=== PATIENT | female | born 1960 | race Caucasian/White ===

== ENCOUNTER 2024-05-07 21:28 | Inpatient (IN) | payer BC, SELFPAY ==
[2024-05-07 15:37] VITALS: BP 121/87
[2024-05-07] MEDS: TORADOL 15 MG IV (17:58)
[2024-05-07 18:07] LABS: % Basophils 0.3 % (0-2); % Eosinophils 0.4 % (0-6); % Immature Granulocytes 1.1 % (0-0.5); % Lymphocytes 8.2 % (20.5-51.1); % Monocytes 5.6 % (1.7-9.3); % Neutrophils 84.4 % (42.2-75.2); Absolute Basophils 0.1 10^3/uL (0-0.2); Absolute Eosinophils 0.1 10^3/uL (0-0.7); Absolute Immature Granulocytes 0.2 10^3/uL (0-0.05); Absolute Lymphocytes 1.2 10^3/uL (1.2-3.4); Absolute Monocytes 0.8 10^3/uL (0.1-0.6); Absolute Neutrophils 12.2 10^3/uL (1.4-6.5); Hematocrit 36.6 % (37.0-47.0); Hemoglobin 11.8 g/dL (12.0-16.0); Mean Corp Hgb Conc. 32.2 g/dL (33.0-37.0); Mean Corpuscular Hgb 30.8 pg (27.0-31.0); Mean Corpuscular Volume 95.6 fL (81.0-99.0); Mean Platelet Volume 10.1 fL (7.4-10.4); Nucleated Red Blood Cells % 0 %; Platelet Count 258 10^3/uL (130-400); Red Blood Cell Count 3.83 10^6/uL (4.20-5.40); Red Cell Dist. Width 14.2 % (11.5-14.5); White Blood Cell Count 14.4 10^3/uL (4.8-10.8)
[2024-05-07 18:26] LABS: ALT (SGPT) 24 U/L (0-35); AST (SGOT) 23 U/L (14-36); Albumin 3.1 g/dl (3.5-5.0); Alkaline Phosphatase 218 U/L (38-126); Blood Urea Nitrogen 38 mg/dl (7-17); Calcium 8.8 mg/dl (8.4-10.2); Carbon Dioxide 23 mmol/L (22-30); Chloride 108 mmol/L (98-107); Glucose 117 mg/dl (70-99); Potassium 3.7 mmol/L (3.5-5.1); Sodium 142 mmol/L (135-145); Total Bilirubin 1.1 mg/dl (0.2-1.3); Total Protein 6.6 g/dl (6.3-8.2); eGFR 38.67
[2024-05-07 18:45] LABS: Lactic Acid 0.9 mmol/L (0.7-2.0)
[2024-05-07 18:48] LABS: Erythrocyte Sed Rate 84 mm/hour (0-20)
--- NOTE | 2024-05-07 19:49 | ED.MUSCINJ ---
HPI-Injury
General
Chief Complaint: Musculo-Skeletal Complaint
Source: patient
Exam Limitations: none
Time Seen by Provider: 05/07/24 16:40
Nursing documentation reviewed up to this point in time: agreed with
History of Present Illness-Injury
Is this injury a work related problem?: No
Is pt an associate of [facility]/[employer]?: No
Initial Injury comments:
Patient to ED with complaint of severe right knee pain. States she developed fever, n/v/d on Thursday. Fever for 24 hours only. States symptoms improved over the next few days. she noted right knee pain which has gotten progressively worse.
States she is now unable to put weight on her leg due to pain. Brought to ED by friend for eval.
Past History
Past History
ED Past Medical History: GERD and Other (PE, diverticulitis w/ abscess/perf)
ED Past Surgical History: Bowel resection, Gynecological, Orthopedic and Other (partial colectomy/colostomy w/ reversal)
Social History
Tobacco: Non-smoker
Alcohol: Occasional
Review of Systems
Review of Systems
Allergies reviewed?: Yes
All Other Systems: ROS reviewed and negative except as documented in HPI and ROS
Constitutional: Reports fever (1 week ago.)
EENT: Reports no symptoms
Respiratory: Reports no symptoms
Cardiac: Reports no symptoms
ABD/GI: Reports other (N/V/D Thursday thru . )
: Reports no symptoms
Musculoskeletal: Reports joint pain (right knee pain, swelling)
Skin: Reports no symptoms
Neurological: Reports no symptoms
Psychiatric: Reports no symptoms
Musculoskeletal Injury Exam
Musculoskeletal Injury Exam
Right Knee:
Pain with Movement?: Moderate
Tender to palpation?: Moderate
Soft tissue swelling?: Moderate
External deformity and angulation?: None
Joint effusion?: Moderate
Contusion?: None
Hematoma-local bleeding into tissue?: None
Strain- Sprain- Tear (Connective tissue injury)?: None
Crepitus with movement?: No
Joint instability?: No
Malalignment/deformity?: No
Range of motion: Limited
Distal skin color and temperature: normal-warm & good color
Normal distal neurovascular exam?: Yes
Peripheral Pulses: posterior tibial (right): 3+ and dorsalis pedis (right): 3+
Phy Exam
General Physical Exam
General Presentation: moderate distress
General age: appears stated age
General Skin: warm and dry
General Habitus: normal
General Mental: alert
Musculoskeletal Exam
Musculoskeletal Exam: neuro vasc intact
Skin Exam
Skin Exam: normal color, warm/dry and no rash
Psychiatric Exam
Psychiatric Exam: normal mood/affect
Injury Course
Orders/Labs/Results
Orders:
Orders
05/07/24 Breakfast
Regular
At Your Request: Full Participation
05/07/24 16:13
CR Knee- Right 4 Or More View* Urgent
Reason For Exam: pain, edema
05/07/24 17:39
Ketorolac [Toradol] 15 mg IV NOW STA
05/07/24 17:58
Comprehensive Metabolic Panel Urgent
05/07/24 18:02
CRP [C-Reactive Protein] Urgent
Complete Blood Count/With Diff Urgent
Sed Rate [Erythrocyte Sed Rate] Urgent
05/07/24 18:25
Lactic Acid Urgent
05/07/24 19:35
Body Fluid Cell Count Urgent
What is the Body Fluid: joint
Date Specimen was Collected: 05/07/24
Time Specimen was Collected: 19:26
Comment: with DIFF
Body Fluid Crystals Urgent
What is the Body Fluid: joint
Date Specimen was Collected: 05/07/24
Time Specimen was Collected: 19:26
Lyme Progressive Urgent
Blood Culture Urgent
PAVAN Source: Blood/Venous
Specimen Description:
Fluid Culture with Gram Stain Urgent
PAVAN Source: Joint Fluid
Specimen Description:
Date Specimen was Collected: 05/07/24
Time Specimen was Collected: 19:26
05/07/24 20:34
Vancomycin [Vancocin] 2,000 mg 0.9% Sodium Chloride 500 ml [Nss] 500 ml IV NOW
05/07/24 21:02
ORTHOPEDIC CONSULT Routine
Consulting Provider: Humberto Vasquez
Was physician already notified: Yes
05/07/24 21:06
Admit/Transfer Patient As Directed
Co-Sign Provider:
Level of Care: Inpatient admission
Assign to:: Medical/Surgical
Physician / Group: christ
Diagnosis: right knee septic arthritis
Reason for Hospitalization: right knee septic arthritis
Expected length of stay greater than two midnights?: Yes
ELOS- Estimated Length of Stay in days: 3
I certify the patient meets the requirements for IP care: Yes
PRN Pain Medication Management As Directed
May give lesser potent ordered pain med per pt: Yes
preference::
Protocol:: Medication orders for pain may be administered in a
manner that supports deferring to patient preference
when the pt is:
- Requesting an ordered lesser potent pain medication.
Least to most potent pain medications are defined
as: acetaminophen < NSAID < tramadol < opioids
(morphine, oxycodone, hydromorphone).
- Requesting a lesser dose of the same medication IF
ORDERED.
- Requesting a less intrusive route of administration
if both routes are prescribed by the provider (PO <
IV).
05/07/24 21:07
Code Status As Directed
Resuscitation Status: Full Code
05/07/24 23:18
0.9% Sodium Chloride 1000 ml [Nss] 1,000 ml IV 80 mls/hr
Acetaminophen [Tylenol] 650 mg PO Q4HPRN PRN
Bisacodyl [Dulcolax] 10 mg RECTAL [id number] PRN
Docusate W/Senna [Senokot-S] 1 tablet PO BIDPRN PRN
HYDROmorphone [Dilaudid] 0.5 mg IV Q4HPRN PRN
Ketorolac [Toradol] 10 mg IV Q6HPRN PRN
Polyethylene Glycol Powder [Miralax] 17 grams PO DAILYPRN PRN
VANCOMYCIN Pharmacy to Dose [VANCOCIN Pharmacy to Dose] 1 each Pharmacy To Prepare [Call Pharmacy To Prepare] 0 ml IV PER PROTOCOL
05/07/24 23:18
Activity As Directed
Activity Level: As Tolerated
Vital Signs As Directed
Frequency: Per unit guidelines
DX Deep Vein Thrombosis Video Routine
05/08/24 05:58
Basic Metabolic Panel IN AM
Complete Blood Count/No Diff IN AM
05/08/24 08:00
Heparin 5,000 units SC Q12
05/09/24 05:35
Basic Metabolic Panel IN AM
Complete Blood Count/No Diff IN AM
05/10/24 06:00
Basic Metabolic Panel IN AM
Complete Blood Count/No Diff IN AM
Abnormal Lab Results
05/07/24 05/07/24
17:58 18:02
WBC 14.4 H 10^3/uL
(4.8-10.8)
RBC 3.83 L 10^6/uL
(4.20-5.40)
Hgb 11.8 L g/dL
(12.0-16.0)
Hct 36.6 L %
(37.0-47.0)
MCHC 32.2 L g/dL
(33.0-37.0)
Abs Immat Gran (auto) 0.2 H 10^3/uL
(0-0.05)
Absolute Neuts (auto) 12.2 H 10^3/uL
(1.4-6.5)
Absolute Monos (auto) 0.8 H 10^3/uL
(0.1-0.6)
Immature Gran % 1.1 H %
(0-0.5)
Neutrophils % 84.4 H %
(42.2-75.2)
Lymphocytes % 8.2 L %
(20.5-51.1)
ESR 84 H mm/hour
(0-20)
Chloride 108 H mmol/L
(98-107)
BUN 38 H mg/dl
(7-17)
Creatinine 1.5 H mg/dL
(0.6-1.0)
Glucose 117 H mg/dl
(70-99)
Alkaline Phosphatase 218 H U/L
(38-126)
C-Reactive Protein 206.30 H mg/L
(0.0-10.00)
Albumin 3.1 L g/dl
(3.5-5.0)
05/07/24 18:02
05/07/24 17:58
Procedures
Incision/Drainage/Joint Aspiration
Right Knee:
Anethesia: 1% Lidocaine with Epi
Preparation: cleaned with Betadine
Type of procedure: aspiration
How much fluid was obtained?: number in mls (30)
Fluid description: cloudy
Treatment: antibiotics started
*Critical Care Note
Total Time (30-74mins, 75-104mins- exclusive of procedures): Not Applicable
Update Note
Update Note:
Patient to ED with complaint of severe right knee pain. SYmptoms started approx 4 days ago. NO history of trauma. Reports fever, n/v/d approx 1 week ago, prior to start of right knee pain. ON exam knee is painful to touch. Unable to bend knee
due to pain. NO erythema at joint. Labs reviewed. WBC 14.5, lactic normal. ELevated Sed Rate and CRP. Blood cultures pending. Joint aspirated for 30cc of thick yellow fluid, sent to lab for fluid culture, gram stain, crystals. Given dose if IV
vancomycin in dept. Consult placed to Dr. Vasquez. Madalyn mendez is admitted to hospitalist service
ED Attending Note
-
Portions of this chart may have been created with voice recognition software.� Occasional wrong word or��sound alike� substitutions may have occurred due to the inherent limitations of voice recognition software.
Discharge Plan
Departure
Patient Disposition: Admit
Date of Disposition: 05/07/24
Time of Disposition: 19:56
Presentation/result/management discussed w/ accepting MD/DO: Hospitalist
Condition: Fair
Covid-19: Not Applicable
Discharge Problem:
Septic arthritis of knee
Interventions
Interventions:
*Risk Screen - Suicide Last Done: 05/07/24 15:39
*General Assessment Last Done: 05/07/24 22:31
*Neglect/Abuse Screening Last Done: 05/07/24 15:39
ED- Fall Risk Assessment Last Done: 05/07/24 22:31
*ED COVID-19 Vaccine History Last Done: 05/07/24 22:31
*Nursing Disposition Last Done: 05/07/24 22:31
ED-Musculoskeletal Assessment Last Done: 05/07/24 18:04
Discharge Date and Time
Discharge Date/Time: 05/07/24 23:07
[2024-05-07 20:35] LABS: Body Fluid Granulocytes 97 %; Body Fluid Lymphocytes 2 %; Body Fluid Macrophages 1 %
[2024-05-07 20:36] LABS: Body Fluid Second Tech CMC
[2024-05-07] MEDS: VANCOCIN 540 MG IV (20:48)
--- NOTE | 2024-05-07 20:49 | HPS.HSE ---
Family Physician
-
Family Physician: Kaur Cristobal
Chief Complaint
-
Right knee pain
History of Present Illness
63-year-old with no significant past medical history presented to us with right knee pain. She was having nausea vomiting diarrhea since last Thursday to Thursday. Nausea vomiting diarrhea resolved by Thursday. on Thursday she noticed right
knee pain and swelling . Pain and swelling progressively got worse . She was having trouble ambulating .2 days she was unable to bear any weight on right knee .patient denied any fever, chills, chest pain, short of breath patient denied dysuria
hematuria .
I&D at the bedside. Fluid sent for cultures. Initiated on vancomycin
Medical History
Past Medical History
Past Medical History: Reports Other
Additional Past Medical History:
GERD
PE
Diverticulitis
Past Surgical History: Reports Other
Additional Past Surgical History:
Bowel resection
Partial colectomy/colostomy with reversal
Social History
Tobacco: Former Smoker
Alcohol: Occasional
Drug: None
Family History
Family History: Not pertinent
Allergies / Home Medications
Allergies reflects when Allergies were last updated in [facility].
Home Medications with original date entered in [facility]
Allergy/Medication List:
Allergies
Allergy/AdvReac Type Severity Reaction Status Date / Time
cat dander Allergy Unknown Verified 03/21/22 14:14
Home Medications
acetaminophen 500 mg tablet 1,000 mg PO DAILY 03/21/22
Review of Systems
-
Constitutional: Reports No Symptoms
EENT: Reports No Symptoms
Respiratory: Reports No Symptoms
Cardiac: Reports No Symptoms
Abdomen/GI: Reports No Symptoms
: Reports No Symptoms
Musculoskeletal: Reports Other (Right knee pain)
Skin: Reports No Symptoms
Neurological: Reports No Symptoms
Endocrine: Reports No Symptoms
Hematologic/Lymphatic: Reports No Symptoms
Psych: Reports No Symptoms
Physical Exam
Vital Signs
Vital Signs
Temp Pulse Resp BP Pulse Ox
98.3 F 94 16 121/87 95
05/07/24 15:37 05/07/24 15:37 05/07/24 15:37 05/07/24 15:37 05/07/24 15:37
Physical Exam
General: Well Developed, Well Nourished and No Apparent Distress
HEENT: NormoCephalic, Moist mucous membranes and Atraumatic
Respiratory: Clear
Cardiac: S1/S2 and Regular Rhythm; No Murmur or Rub
GI: Soft, Non Tender, Non Distended and Normal Bowel Sounds; No Organomegaly
Rectal: Deferred by Provider
Musculoskeletal: No Clubbing, No Cyanosis and Other (Right knee is swollen)
Skin: No Rash
Neuro: Nonfocal/grossly intact
Laboratory Results
-
05/07/24 18:02
05/07/24 17:58
Laboratory Results
Lactic Acid 0.9 mmol/L (0.7-2.0) 05/07/24 18:25
Total Bilirubin 1.1 mg/dl (0.2-1.3) 05/07/24 17:58
AST 23 U/L (14-36) 05/07/24 17:58
ALT 24 U/L (0-35) 05/07/24 17:58
Alkaline Phosphatase 218 U/L (38-126) H 05/07/24 17:58
Data Reviewed
-
Diagnostic Radiology: Report Reviewed by me
Lab Data: Labs Reviewed by me
Impression/Plan
-
# Septic arthritis right knee
-WBCs 14.4, ESR 84
-CRP 206.30
-Knee x-ray with impression of Tricompartment osteoarthritis most as above the medial compartment and patellofemoral joint. Moderate effusion.
-Status post I&D at the bedside
-Blood cultures and fluid cultures sent from ER
-Patient received vancomycin in ER
-Continue vancomycin
-Tylenol, Toradol and Dilaudid prn for pain
# Acute kidney injury likely dehydration
Creatinine 1.5
-Normal saline x 1
-BMP in a.m.
# DVT prophylaxis
-Heparin subcu
# CODE STATUS
-Full code
--- NOTE | 2024-05-07 20:59 | W.PN.UPDATE ---
Update Note
Progress Note Update
Patient seen in conjunction with RODRÍGUEZ. I agree with the findings on history and physical as well as assessment and plan unless stated otherwise.
Briefly, this is a 63-year-old with past medical history of GERD, prior diverticulitis with prior PE presenting to the emergency department with ongoing episode of right knee pain. Patient reports history of chronic bilateral knee osteoarthritis
having had her knee injections in the past the last injection was over a year ago. She has no history of her knee surgery. Patient reported that about 1 week ago she developed chills and nausea and vomiting which started to improve after she went
back on taking ibuprofen and Tylenol for pain. However few days later, which was about 4 days ago she started having right knee pain. She now has developed pain where she could not put any weight on the right side. She was unable to tell me if
there was any erythema. She also denies any knowledge of differential or increased swelling. Patient denies any injuries. She denies any animal bites. She has not been on any antibiotics recently. No recent hospitalizations.
In the emergency department she was afebrile, blood pressure was stable at 121/87 and had a pulse of 94. She had leukocytosis to 14,000 with a stable hemoglobin of 11.8 and normal platelet. ESR was markedly elevated at 84. BUN and creatinine are
slightly elevated at 38 and 1.5. Electrolytes are all within normal limits. Right knee x-ray shows tricompartmental osteoarthritis. Status post right knee arthrocentesis. Fluid count shows pussy material with 97% neutrophils.
Assessment and plan
1. Presumptive septic arthritis - 30 ml of pus appearing material after arthrocentesis with 97% neutrophils. Ortho consulted and requested special differentiation technique if possible. May need sendout. In the mean time it has been sent for
cultures. No crystals. No h/o gout. Possible post-infectious arthritis but unlikely based on description of purulent material and markedly elevated inflammatory markers.
- admit to med/surg
- cultures pending
- IV Vancomcyin for now
- ID consult
- pain control and supportive care
Ortho consulted in ED, however the lab findings was not satisfactory to them to determine presence of infectious arthritis. Ortho recommended medicine to consult them again once findings c/w arthritis. Subjectively, the synovial fluid appeared
extremely thick with puss preventing normal cell count. Lab cannot further analyze (ortho requested flow cytometry, dilution or send out). May have to repeat arthrocentesis tomorrow unfortunately patient will have to empirically treated based on
current findings.
DVT PPX - lovenox sq
Code Status - Full Code
[2024-05-07 22:31] VITALS: BP 116/49
[2024-05-07 23:30] VITALS: BP 126/70; BMI 40.1
--- NOTE | 2024-05-07 23:30 | PHA.VAN.IN ---
Assessment
- Assessment
Renal Function: Appears elevated from baseline
Maximum Temperature: 98.3
Minimum Temperature: 98.3
Plan
- Plan
Initial / Loading Dose: 2000mg 05/07
Maintenance Regimen: Dose by level due to ARMIN (dehydration)
Monitoring: Random level with morning labs
Pharmacokinetics Vancomycin I
- -
Patient Age: 63
Patient Sex: Female
Vancomycin Day #: 1
Indication: Bone And Joint
Requesting Provider: Angella Romo/Enoc Machado
Pertinent Antimicrobial Allergies:
None
Height / Weight:
Actual Weight 114.6 kg
- Vital Signs / Lab Results
Temp Pulse Resp BP Pulse Ox
98.3 F 88 16 116/49 98
05/07/24 15:37 05/07/24 22:31 05/07/24 22:31 05/07/24 22:31 05/07/24 22:31
Lab Results - Hematology
05/07/24
18:02
WBC 14.4 H
Lab Results - Chemistry
05/07/24
17:58
BUN 38 H
Creatinine 1.5 H
Albumin 3.1 L
05/07/24
18:25
Lactic Acid 0.9
[2024-05-07] MEDS: NSS 1000 IV (23:46)
[2024-05-07] MEDS: TORADOL 10 MG IV (23:47)
--- NOTE | 2024-05-08 02:48 | PTCARENOTE ---
Pt arrived via ED stretcher at 2330. pt was able to ambulate assit x1 with rolling walker from stretcher to bed. VSS. IVF infusing per order. head to to assessment complete. sister at bed side. bed in lowest position and locked. call ware with in
reach.
[2024-05-08] MEDS: TORADOL 10 MG IV (06:04)
[2024-05-08 06:31] LABS: Vancomycin Random 17.6 ug/ml
[2024-05-08 06:40] LABS: Blood Urea Nitrogen 31 mg/dl (7-17); Calcium 8.5 mg/dl (8.4-10.2); Carbon Dioxide 23 mmol/L (22-30); Chloride 109 mmol/L (98-107); Estimated Creatinine Clearance 50 ml/min; Glucose 109 mg/dl (70-99); Potassium 3.9 mmol/L (3.5-5.1); Sodium 141 mmol/L (135-145); eGFR 42.01
[2024-05-08 06:45] LABS: Hematocrit 34.1 % (37.0-47.0); Hemoglobin 11.3 g/dL (12.0-16.0); Mean Corp Hgb Conc. 33.1 g/dL (33.0-37.0); Mean Corpuscular Hgb 31.7 pg (27.0-31.0); Mean Corpuscular Volume 95.8 fL (81.0-99.0); Mean Platelet Volume 10.3 fL (7.4-10.4); Platelet Count 285 10^3/uL (130-400); Red Blood Cell Count 3.56 10^6/uL (4.20-5.40); Red Cell Dist. Width 14.2 % (11.5-14.5); White Blood Cell Count 12.6 10^3/uL (4.8-10.8)
[2024-05-08 07:10] VITALS: BP 129/69
[2024-05-08] MEDS: HEPARIN 5000 UNITS SC ×2 (08:29→20:40)
--- NOTE | 2024-05-08 10:28 | PHA.VAN.FU ---
Vancomycin Assessment / Plan
- Assessment
Renal Function: SCR Decreasing
WBC's are: Trending Down
In the past 24 hrs, patient has been: Afebrile
- Assessment - Therapeutic Drug Monitoring
Random Level: R = 17.6 ~ 9hrs post Vanc 2gm
- Dosing Plan
Continue: Dose by level
Dosing by Level: Re-dose today (Vanc 1000mg--9.1mg/kg at 1800)
- Monitoring Plan
Random Level: 12/9 AM
- Follow Up
Pharmacy will continue to follow.
Vancomycin Follow UP
- -
Patient Age: 63
Patient Sex: Female
Vancomycin Day #: 2
Indication: Bone And Joint
Requesting Provider: Angella Romo/Enoc Machado
Pertinent Antimicrobial Allergies:
None
Height / Weight:
Height 5 ft 5 in
Actual Weight 109.27 kg
- Vital Signs / Lab Results
Temp Pulse Resp BP Pulse Ox
98.4 F 88 16 129/69 96
05/08/24 07:10 05/08/24 07:10 05/08/24 07:10 05/08/24 07:10 05/08/24 07:10
Lab Results - Hematology
05/07/24 05/08/24
18:02 05:58
WBC 14.4 H 12.6 H
Lab Results - Chemistry
05/07/24 05/08/24
17:58 05:58
BUN 38 H 31 H
Creatinine 1.5 H 1.4 H
Estimated Creat Clear 50
Albumin 3.1 L
05/07/24
18:25
Lactic Acid 0.9
Microbiology Results
05/07/24 19:35 Gram Stain - Preliminary
Joint Fluid
Therapeutic Drug Monitoring
Random Vancomycin 17.6 ug/ml 05/08/24 05:58
--- NOTE | 2024-05-08 10:30 | CON.ORTHO ---
Consultation
-
Date/Time Consultation Requested: 193005/07/2024
Date/Time Consultation Performed: 81405/08/2024
Requesting Provider: Sherry Crowell
Performing Provider: Humberto Vasquez
Reason for Consultation: Right knee pain
Consultation - Orthopedics
History
Orthopedic Surgery Note
CC: Right knee pain
HPI: 63-year-old female presented to the emergency department with about 1 week of progressively worsening right knee pain. She has a history of right knee osteoarthritis. She has previously recovering from nausea and vomiting last week. Her pain
progressed to the right knee to where she could not bear weight. No fevers or chills. She underwent right knee aspiration in the ED which showed cloudy fluid and was sent for testing. The patient has pain with active motion of the leg.
PMH/PSH: GERD; h/o PE, h/o bowel resection
Medications: reviewed
Family History: Family history was reviewed. Noncontributory
Social history: Former smoker, no illicit drugs
Exam
General appearance: Pleasant. No acute distress.
Head: Normocephalic/atraumatic
Nose: No lesions or discharge.
Skin: No obvious rashes or open wounds
Lungs: No audible wheezing, no cough or sputum production
Musculoskeletal:
RLE:
skin intact without open wounds; bandaid over aspiration site
warmth about knee
no overlying erythema
painful active and passive motion of the knee
slight varus alignment
fires ehl/fhl/ta/gs
sensation intact to light touch distally s/s/sp/dp/t
Toes wwp, 1+ DP
Imaging:
X-rays of the right knee performed in the emergency department were reviewed by me. They show advanced medial joint space narrowing consistent with osteoarthritis. No signs of displaced fracture.
Labs:
Serum labs reviewed: Elevated WBC, ESR, CRP
Synovial aspiration R knee 05/07/2024:
WBC: Not reportable
PMN% 97%
Cyrstals: Not reportable
Grams stain: negative
Assessment and plan:
63-year-old female with 1 week of progressive right knee pain. She has osteoarthritis but now has swelling and warmth and was aspirated of cloudy fluid. We discussed possible etiologies including pseudogout or gout versus infection. We discussed
diagnostic criteria for interarticular infection. Unfortunately the lab was unable to produce a synovial white cell count on the aspirate sample. I discussed with the laborer shipyard last night about possible alternative ways to process the sample
to provide a white count such as dilution. I recommended if the lab cannot produce a synovial white count that they consider sending out the sample to [facility] or [facility] or another facility that typically is able to produce a synovial white blood
cell count even in light of increased viscosity. I discussed treatment options with the patient depending on the underlying etiology of her right knee pain. We discussed that with the absence of a cell count, we will see what cultures show in terms
of deciding about surgical treatment including irrigation and debridement. If a synovial cell count can be obtained, then that may expedite more definitive diagnosis and treatment.
Artie Vasquez MD
> 75 minutes was spent reviewing the clinical information, evaluating the patient, and formulating clinical plan.
Allergies / Home Medications
Allergy/AdvReac Type Severity Reaction Status Date / Time
cat dander Allergy Unknown Verified 03/21/22 14:14
�Medication �Instructions �Recorded
acetaminophen 500 mg tablet 1,000 mg PO BID 03/21/22
Vital Signs / Lab Results
Temp Pulse Resp BP Pulse Ox
98.4 F 88 16 129/69 96
05/08/24 07:10 05/08/24 07:10 05/08/24 07:10 05/08/24 07:10 05/08/24 07:10
05/08/24 05:58
05/08/24 05:58
--- NOTE | 2024-05-08 12:08 | CON.ID ---
Consultation
-
Date/Time Consultation Requested: 05/07/2024 2252
Date/Time Consultation Performed: 05/08/2024 1140
Requesting Provider: Demetrius
Performing Provider: Jeannette
Reason for Consultation: Septic right knee
Chief Complaint / Past History
History of Present Illness
Niurka Sharp is a 63-year-old female being evaluated at the request of Angella Romo in regards to a septic right knee. History is obtained from chart review, along with patient interview.
According to reviewed history she developed nausea, vomiting and diarrhea, with fever for 24 hours approximately 1 week ago. Over the next several days symptomatology improved, but 3 to 4 days ago she noted right knee pain which progressively grew
worse. When she could not put weight on her leg due to the pain she came to the emergency room for further evaluation.
Here, the knee was found to be swollen, and it was aspirated, with findings suggestive of septic arthritis. Infectious Diseases asked to comment upon further antimicrobial therapy.
At present, patient reports ongoing discomfort in the right knee. She denies any recent trauma to the area. She notes no sick contacts. No further nausea or vomiting, although she continues to feel somewhat generally weak.
Past History
Additional Past Medical History:
GERD
PE
Diverticulitis
Additional Past Surgical History:
Hx partial colectomy/Hx colostomy with reversal
Allergy History:
cat dander Allergy (Verified 03/21/22 14:14)
Unknown
Medications Reviewed: Yes
Current Antibiotics:
Vancomycin (dosed per pharmacy)
Social History
Tobacco: Non-Smoker
Alcohol: Occasional
Drug: None
Personal: Single
Living: Alone
Employment: Retired
Family History
Family History: Not Pertinent
Review of Systems
Vital Signs
Temp Pulse Resp BP Pulse Ox
98.4 F 88 16 129/69 96
05/08/24 07:10 05/08/24 07:10 05/08/24 07:10 05/08/24 07:10 05/08/24 07:10
Physical Exam
Physical Exam
Constitutional: No Acute Distress, Comfortable and Non-toxic
Eyes: Pupils Equal, Pupils Round, No Conjunctival Hemorrhage and Sclera Anicteric
Oral: No Thrush and No Ulcers
Cardiovascular: Regular Rate and S1/S2; Negative S3/S4
Gastrointestinal: Soft, Non Tender, Non Distended and Normal Bowel Sounds
Musculoskeletal: Joint Swelling (Right knee) and Joint Effusion (Right knee)
Skin: Warm and Dry; Negative Rash or Jaundice
Neurological: Awake and Alert
Psychological: Calm
.
Lab / Diagnostic Study Results
05/08/24 05:58
05/08/24 05:58
Abs Immat Gran (auto) 0.2 10^3/uL (0-0.05) H 05/07/24 18:02
Absolute Neuts (auto) 12.2 10^3/uL (1.4-6.5) H 05/07/24 18:02
Absolute Lymphs (auto) 1.2 10^3/uL (1.2-3.4) 05/07/24 18:02
Absolute Monos (auto) 0.8 10^3/uL (0.1-0.6) H 05/07/24 18:02
Absolute Basos (auto) 0.1 10^3/uL (0-0.2) 05/07/24 18:02
Immature Gran % 1.1 % (0-0.5) H 05/07/24 18:02
Neutrophils % 84.4 % (42.2-75.2) H 05/07/24 18:02
Lymphocytes % 8.2 % (20.5-51.1) L 05/07/24 18:02
Monocytes % 5.6 % (1.7-9.3) 05/07/24 18:02
Eosinophils % 0.4 % (0-6) 05/07/24 18:02
Basophils % 0.3 % (0-2) 05/07/24 18:02
ESR 84 mm/hour (0-20) H 05/07/24 18:02
Lactic Acid 0.9 mmol/L (0.7-2.0) 05/07/24 18:25
C-Reactive Protein 206.30 mg/L (0.0-10.00) H 05/07/24 18:02
Microbiology Results
Micro:
05/07/24 19:35 Body Fluid Culture - Pending
Joint Fluid Gram Stain - Preliminary
05/07/24 19:35 Blood Culture - Pending
Blood/Venous
Imaging:
05/07/2024 Right knee x-ray: There is obliteration of the medial compartment with dense degenerative subchondral sclerosis, subchondral cyst formation, and joint margin osteophyte formation. There is also moderate to advanced lateral compartment
narrowing with mild lateral joint margin osteophyte formation. There is advanced patellofemoral joint space narrowing with joint margin osteophyte formation. There is a moderate joint effusion. Film personally viewed.
Assessment / Plan
Suspected right knee septic arthritis
Leukocytosis
ARMIN
Elevated ESR
Elevated CRP
GERD
PE
Diverticulitis
Recommendations:
Continue with empiric vancomycin for the present.
Follow Vanco levels closely to prevent renal toxicity.
Cultures from joint fluid are currently incubating; will await further results.
Monitor white count temperature curve.
Further recommendations as additional data is returned.
[2024-05-08] MEDS: DILAUDID 0.5 MG IV ×3 (12:11→21:56)
--- NOTE | 2024-05-08 12:15 | W.PN.HOSP.TC ---
Today's Communication/Plan
-
Abx
IVF - monitor bmp
await cultures
Possible irrigation and debridement depending on cultures
Assessment / Plan
Assessment / Plan
Physical Exam
General: Well Developed, Well Nourished and No Apparent Distress
HEENT: NormoCephalic, Moist mucous membranes and Atraumatic
Respiratory: Clear
Cardiac: S1/S2 and Regular Rhythm; No Murmur or Rub
GI: Soft, Non Tender, Non Distended and Normal Bowel Sounds; No Organomegaly
Rectal: Deferred by Provider
Musculoskeletal: No Clubbing, No Cyanosis and Other (Right knee is swollen) Bandage at incision site where drainage was
Skin: No Rash
Neuro: Nonfocal/grossly intact
# Septic arthritis right knee
-WBCs 14.4, ESR 84
-CRP 206.30
-Knee x-ray with impression of Tricompartment osteoarthritis most as above the medial compartment and patellofemoral joint. Moderate effusion.
-Status post I&D
-Blood cultures and fluid cultures sent
-Continue vancomycin
-Tylenol, Toradol and Dilaudid prn for pain
-F/u Ortho plan
# Acute kidney injury likely dehydration
-cont ivf
-BMP in a.m.
# DVT prophylaxis
-Heparin subcu
# CODE STATUS
-Full code
Anticipated Discharge: > 48 hours
Subjective/Interval History
-
Date of Service: May 08, 2024
Still having right knee pain
Objective Data
-
Labs:
Laboratory Results
05/08/24
05:58
WBC 12.6 H
Hgb 11.3 L
Hct 34.1 L
Plt Count 285
Sodium 141
Potassium 3.9
Chloride 109 H
Carbon Dioxide 23
BUN 31 H
Creatinine 1.4 H
Glucose 109 H
Calcium 8.5
Vital Signs:
Vital Signs
Temp Pulse Resp BP Pulse Ox
98.4 F 88 16 129/69 96
05/08/24 07:10 05/08/24 07:10 05/08/24 07:10 05/08/24 07:10 05/08/24 07:10
I&O
05/07/24 05/08/24 05/09/24
06:59 06:59 06:59
Intake Total 640 / 640
Balance 640 / 640
Review of Systems
-
History Source: Patient
All other systems: Not reviewed unless documented
Data Reviewed
-
Diagnostic Radiology: Report Reviewed by me
Labs: Labs Reviewed by me
--- NOTE | 2024-05-08 13:43 | W.PN.UPDATE ---
Update Note
Progress Note Update
I evaluated the patient at bedside again this afternoon. No subjective fevers or chills. She has right knee pain appropriately managed with pain medication. She remains afebrile with normal vital signs. Her Gram stain returned as negative. The
cultures are pending without growth so far. I discussed with the patient treatment options and shared decision was to monitor her progress and follow up further clinical data (cell count, cultures). We discussed indications for right knee
irrigation and debridement if there is more definitive signs of intra-articular infection. No plan for surgery today based on present data. All questions were answered.
[2024-05-08] MEDS: LR 1000 IV (13:46)
[2024-05-08 15:10] VITALS: BP 121/64
--- NOTE | 2024-05-08 15:51 | CM ---
Met with pt at bedside
Pt reports she lives alone in a 1 story home, in a [place] community; 2 steps to enter
Retired, independent , drives
DME - none
SNF - denies past hx
HH - [facility] in past
Has ride at discharge
PCP - Franco Madrigal
Pharm - [facility]
Plan - anticipate home no needs vs w/VN when medically stable
[2024-05-08] MEDS: VANCOCIN 200 IV (18:14)
[2024-05-08 23:06] VITALS: BP 121/68
[2024-05-09] VITALS (14 sets, daily range): BP systolic 0–150; BP diastolic 53–111
[2024-05-09] MEDS: TORADOL 10 MG IV ×2 (01:54→08:33)
[2024-05-09] MEDS: LR 1000 IV ×2 (05:38→19:55)
[2024-05-09] MEDS: TYLENOL 650 MG PO ×3 (05:45→23:53)
[2024-05-09 06:45] LABS: Hematocrit 33.1 % (37.0-47.0); Hemoglobin 10.7 g/dL (12.0-16.0); Mean Corp Hgb Conc. 32.3 g/dL (33.0-37.0); Mean Corpuscular Hgb 31.1 pg (27.0-31.0); Mean Corpuscular Volume 96.2 fL (81.0-99.0); Platelet Count 347 10^3/uL (130-400); Red Blood Cell Count 3.44 10^6/uL (4.20-5.40); Red Cell Dist. Width 13.9 % (11.5-14.5); White Blood Cell Count 13.1 10^3/uL (4.8-10.8)
[2024-05-09 06:53] LABS: Blood Urea Nitrogen 22 mg/dl (7-17); Calcium 8.9 mg/dl (8.4-10.2); Carbon Dioxide 22 mmol/L (22-30); Chloride 108 mmol/L (98-107); Estimated Creatinine Clearance 64 ml/min; Glucose 105 mg/dl (70-99); Potassium 4.1 mmol/L (3.5-5.1); Sodium 140 mmol/L (135-145); eGFR 56.11
[2024-05-09 07:07] LABS: Vancomycin Random 13.2 ug/ml
[2024-05-09] MEDS: HEPARIN 5000 UNITS SC (08:31)
--- NOTE | 2024-05-09 08:36 | W.PN.UPDATE ---
Update Note
Progress Note Update
Patient resting comfortably in bedside chair. Afeb. No constitutional symptoms. Right knee with small effusion. Generalized soreness to palpation about the knee. DNVI RLE. Gram stain negative, continue to follow culture data. Continue IV Vanco for
now. If safe, may be OOB ad kriss. Ice and elevation. Pain control. No plan for surgical intervention at this time. Will continue to follow closely
--- NOTE | 2024-05-09 11:58 | W.PN.HOSP.TC ---
Today's Communication/Plan
-
N.p.o.
PT/OT
Hemoglobin A1c
Assessment / Plan
Assessment / Plan
Gen-AAOx3, NAD
HEENT-NC, AT, anicteric, clear oral mm
Neck-supple
CV-reg, no M, +S1/S2
Lungs-clear B/L
Abd-soft, NT, ND
Ext-no edema
Musculoskeletal-no cyanosis, clubbing, right knee swollen, tender, warm, limited range of motion due to pain
Skin-warm and dry
Neuro-grossly non-focal
Psych-calm, cooperative
Sepsis due to acute septic arthritis right knee -n.p.o. currently awaiting washout today in the OR by orthopedics. Fluid culture positive for E. coli, antibiotics per infectious disease.
-WBCs 14.4, ESR 84
-CRP 206.30
-Knee x-ray with impression of Tricompartment osteoarthritis most as above the medial compartment and patellofemoral joint. Moderate effusion.
-Status post I&D
-Blood cultures and fluid cultures sent
-Continue vancomycin
-Tylenol, Toradol and Dilaudid prn for pain
-F/u Ortho plan
Recent acute gastroenteritis -suspect transmucosal migration of bacteria from GI illness leading to bacteremia and septic arthritis given positive fluid culture for E. coli. Her GI illness started prior to onset of knee pain.
ARMIN -due to volume depletion. Improved.
Acute normocytic anemia -monitor hemoglobin. Etiology likely due to acute illness. No evidence of bleeding clinically.
Hyperglycemia -rule out DM2. Check hemoglobin A1c.
Morbid obesity due to excess calories
DVT prophylaxis
-Heparin subcu
Full code
Anticipated Discharge: > 48 hours
Subjective/Interval History
-
Date of Service: May 09, 2024
Patient seen and examined. Complaining of right knee pain.
Objective Data
-
Labs:
Laboratory Results
05/09/24
05:35
WBC 13.1 H
Hgb 10.7 L
Hct 33.1 L
Plt Count 347 D
Sodium 140
Potassium 4.1
Chloride 108 H
Carbon Dioxide 22
BUN 22 H
Creatinine 1.1 H
Glucose 105 H
Calcium 8.9
Vital Signs:
Vital Signs
Temp Pulse Resp BP Pulse Ox
98.0 F 86 16 146/78 95
05/09/24 07:14 05/09/24 07:14 05/09/24 07:14 05/09/24 07:14 05/09/24 07:14
I&O
05/08/24 05/09/24 05/10/24
06:59 06:59 06:59
Intake Total 640 / 640 2580 / 2580
Balance 640 / 640 2580 / 2580
Review of Systems
-
History Source: Patient
All other systems: Reviewed and negative
[2024-05-09] MEDS: DILAUDID 0.5 MG IV ×2 (12:18→18:37)
--- NOTE | 2024-05-09 12:45 | W.PN.ID1 ---
Date of Service
Date of Service: May 09, 2024
Today's Communication
Continue antibiotics. Change vancomycin to cefepime
Assessment / Plan
Right knee septic arthritis 2* E. coli
Leukocytosis
ARMIN
Elevated ESR
Elevated CRP
GERD
PE
Diverticulitis
Recommendations:
Cultures now revealed presence of E. coli in the right knee aspirate.
Discontinue further vancomycin.
Begin cefepime while further cultures are pending.
Patient for tentative OR later today.
Monitor white count temperature curve.
Further recommendations as additional data is returned.
����������������������������������������������������������
Chief Complaint
-: Other (Right knee septic arthritis)
Subjective / Review of Systems
Patient seen and examined. Reports ongoing right knee discomfort. No fevers or chills.
Vital Signs / Physical Exam
Vital Signs
Vital Signs
Temp Pulse Resp BP Pulse Ox
98.0 F 86 16 146/78 95
05/09/24 07:14 05/09/24 07:14 05/09/24 07:14 05/09/24 07:14 05/09/24 07:14
Physical Exam
Constitutional: No Acute Distress, Comfortable and Non-toxic
Eyes: Sclera Anicteric
Pulmonary: Non Labored
Gastrointestinal: Non Distended
Musculoskeletal: Joint Swelling (Right knee) and Joint Effusion (Right knee)
Skin: Warm and Dry; Negative Rash or Jaundice
Neurological: Awake and Alert
Psychological: Calm
Objective Data
Lab Data
Lab Results
05/09/24 05:35
05/09/24 05:35
ESR 84 mm/hour (0-20) H 05/07/24 18:02
Estimated Creat Clear 64 ml/min 05/09/24 05:35
Lactic Acid 0.9 mmol/L (0.7-2.0) 05/07/24 18:25
Total Bilirubin 1.1 mg/dl (0.2-1.3) 05/07/24 17:58
AST 23 U/L (14-36) 05/07/24 17:58
ALT 24 U/L (0-35) 05/07/24 17:58
Alkaline Phosphatase 218 U/L (38-126) H 05/07/24 17:58
C-Reactive Protein 206.30 mg/L (0.0-10.00) H 05/07/24 18:02
Most recent labs reviewed.
Micro Results:
05/07/24 19:35 Body Fluid Culture - Preliminary
Joint Fluid Escherichia coli
Gram Stain - Preliminary
05/07/24 19:35 Blood Culture - Preliminary
Blood/Venous No Growth in 24 hours- Final report to follow
Imaging:
05/07/2024 Right knee x-ray: There is obliteration of the medial compartment with dense degenerative subchondral sclerosis, subchondral cyst formation, and joint margin osteophyte formation. There is also moderate to advanced lateral compartment
narrowing with mild lateral joint margin osteophyte formation. There is advanced patellofemoral joint space narrowing with joint margin osteophyte formation. There is a moderate joint effusion. Film personally viewed.
Care Review
Plan reviewed with: Physician (Hospitalist)
[2024-05-09 14:28] LABS: Lyme Antibody Screen, EIA Negative (Negative)
[2024-05-09] MEDS: MAXIPIME 2000 MG IV (14:48)
[2024-05-09] MEDS: STERILE WATER FOR INJECTION 10 ML IV (14:48)
--- NOTE | 2024-05-09 15:07 | CM ---
Chart reviewed
Pt NPO for OR today for washout by orthopedics
+ cx for E Coli
Infectious Disease following
PT eval pend post-op
Plan - TBD post op based on needs
--- NOTE | 2024-05-09 18:16 | OR.RPT ---
Addendum entered and electronically signed by Humberto Vasquez MD 05/18/24 16:12:
Note for CDI, excisional debridement with 10 blade scalpel and rongure of fibrinous synovial tissue from knee joint.
Original Note:
Operative Report
Operative Report
DATE OF OPERATION: 05/09/2024
PREOPERATIVE DIAGNOSES: [place] knee infection, right side
POSTOPERATIVE DIAGNOSES: Same
OPERATION PERFORMED: Open debridement and irrigation of the right knee
SURGEON: Humberto Vasquez MD
ASSISTANTS: NA
ANESTHESIA: General
COMPLICATIONS: None
ESTIMATED BLOOD LOSS: 20mL
TOURNIQUET TIME: NA
SPECIMINES: Cultures x2 of synovial fluid
Findings: See below
INDICATIONS: The patient presented to the ED with right knee pain. She had swelling and elevated inflammatory markers. Aspirate findings were concerning for infection, including positive cultures for ecoli. We discussed treatment options. Shared
decision was to proceed with surgical treatment. We reviewed the natural history of the problem, as well as the risks, benefits, and alternatives of various treatment options. The patient understood the risks including, but were not limited to,
bleeding, infection, failure to relieve pain, more pain than preop, damage to blood vessels and nerves, need for reoperation, arthritis, wound healing problems, stiffness, instability, blood clot, pulmonary embolism, myocardial infarction,
pneumonia, arrhythmia, CVA, and . The patient accepted these risks and wished to proceed.
PROCEDURE IN DETAIL: The patient was identified in the preoperative holding area. The operative limb was identified and marked with my initials. The patient was taken in the operating room and placed in a supine position on the operating table.
General anesthesia was performed. IV antibiotics were given. A gel pad was placed under the contralateral limb. All bony prominences were well padded. The operative limb was prepped and draped in the usual sterile fashion.
We performed a surgical time-out. An anterior midline incision was made. The skin was dissected down to the base of the prepatellar bursa. This was dissected medially in a full thickness flap to the medial parapatellar retinaculum. The retinaculum
was incised with care to protect the patellar tendon. The fluid showed signs of purulence and turbidity. There was advanced osteoarthritis. The joint was copiously irrigated with 9 L of sterile saline via cystotubing. A Hemovac drain was placed.
The arthrotomy was closed with 0 PDS in a running fashion. The deep dermal layer was closed with 2-0 PDS in running fashion. The skin was closed with 3-0 nylon in a horizontal mattress pattern. A sterile skin dressing was applied.
The patient awoke from anesthesia without any difficulties. The sponge and instrument counts were correct at the end of the case. I was present and participated for the entire procedure.
Artie Vasquez MD
[2024-05-09] MEDS: DEMEROL 12.5 MG IV (18:58)
[2024-05-09 19:15] LABS: Hepatitis C Antibody Negative (Negative)
[2024-05-09] MEDS: SENOKOT 17.2 MG PO (19:57)
[2024-05-09] MEDS: HEPARIN SC (20:02)
[2024-05-09] MEDS: ASPIRIN 325 MG PO (20:02)
[2024-05-09] MEDS: ROXICODONE 5 MG PO (20:06)
--- NOTE | 2024-05-09 20:58 | PTCARENOTE ---
Patient received from PACU at 194; Hemovac drain to right knee in place with sanguinous output noted; Right knee primaseal clean/dry/intact; Bilateral pedal pulse +1 to palpation; Patient denies N/V at this time; States pain has improved with PRN
pain medications, see MAR; Call ware within reach; Bed in lowest position, wheels locked; Assessment ongoing
[2024-05-10] VITALS (8 sets, daily range): BP systolic 101–137; BP diastolic 54–76; PULSE 63–70; O2SAT 95–97
[2024-05-10] MEDS: STERILE WATER FOR INJECTION 10 ML IV ×2 (01:23→16:05)
[2024-05-10] MEDS: MAXIPIME 2000 MG IV ×2 (01:23→16:05)
[2024-05-10] MEDS: TYLENOL 650 MG PO ×6 (03:00→23:08)
[2024-05-10] MEDS: ROXICODONE 5 MG PO ×4 (03:12→20:12)
--- NOTE | 2024-05-10 07:15 | W.PN.ORTHO ---
Today's Communication / Plan
-
POD#1 right knee open I&D under the direction of Dr. Vasquez
--WBAT RLE. Ambulate with assistive device as needed
--PT/OT
--Encouraged patient to perform ROM of knee as tolerated
--Hemovac drain removed
--Dressing to remain in place until postop appointment
--Continue pain management as needed
--Aspirin 325mg daily for DVT prophylaxis x4 weeks postop
--Intraop cultures pending. Gram stain with rare WBC, no organisms
--Appreciate ID recommendations, currently on cefepime
--Case management consult for discharge planning
--Will continue to follow
Assessment
.
Distal Motor Intact: Yes
Dressing:
Clean, dry and intact.
Plan
.
Surgery / Date: Right knee I&D 05/09/24 (Christina)
DVT Prophylaxis: Aspirin
Activity:
Out of bed.
PT/OT
Subjective
.
.:
Patient resting comfortably in bed. She reports that her pain is improved and well controlled at present
Vital Signs and Labs
.
Vital Signs and Labs:
Temp Pulse Resp BP Pulse Ox
97.7 F 67 16 117/59 96
05/10/24 03:13 05/10/24 03:13 05/10/24 03:13 05/10/24 03:13 05/10/24 03:13
Physical Exam
-
Directed exam of right knee with surgical dressing in place. clean, dry, and intact. hemovac drain in place with minimal output. thigh soft and compressible. able to plantarflex/dorsiflex the ankle. calf soft and nonteder. NVI distally
[2024-05-10] MEDS: SENOKOT 17.2 MG PO ×2 (08:13→20:13)
[2024-05-10] MEDS: ASPIRIN 325 MG PO (08:14)
[2024-05-10] MEDS: HEPARIN SC (08:18)
[2024-05-10 08:23] LABS: Hematocrit 30.3 % (37.0-47.0); Hemoglobin 10.1 g/dL (12.0-16.0); Mean Corp Hgb Conc. 33.3 g/dL (33.0-37.0); Mean Corpuscular Hgb 31.8 pg (27.0-31.0); Mean Corpuscular Volume 95.3 fL (81.0-99.0); Platelet Count 385 10^3/uL (130-400); Red Blood Cell Count 3.18 10^6/uL (4.20-5.40); Red Cell Dist. Width 13.5 % (11.5-14.5); White Blood Cell Count 13.1 10^3/uL (4.8-10.8)
[2024-05-10 09:29] LABS: Blood Urea Nitrogen 23 mg/dl (7-17); Calcium 8.7 mg/dl (8.4-10.2); Carbon Dioxide 25 mmol/L (22-30); Chloride 107 mmol/L (98-107); Estimated Creatinine Clearance 64 ml/min; Glucose 127 mg/dl (70-99); Potassium 4.9 mmol/L (3.5-5.1); Sodium 141 mmol/L (135-145); eGFR 56.11
--- NOTE | 2024-05-10 11:19 | PN.CDI ---
CDI
- -
CDI:
Physician Documentation Request
Admit Date: 05/07/24 21:28
Dear Doctor Christina,
Patient admitted for septic arthritis.
05/09 Operative Note: 'Open debridement and irrigation of the right knee...The skin was dissected down to the base of the prepatellar bursa. This was dissected medially in a full thickness flap to the medial parapatellar retinaculum. The retinaculum
was incised with care to protect the patellar tendon....The joint was copiously irrigated with 9 L of sterile saline via cystotubing.'
Could you provide, in the progress notes further clarification regarding the debridement.
Please specify the type of debridement performed:
1. Excisional Debridement - defined as removal by excision of devitalized tissue, necrosis or slough
2. Non-excisional debridement - defined as removal of devitalized tissue, necrosis or slough by such methods as irrigation, brushing, scrubbing or washing.
If the debridement was excisional, please also include:
1. Type of instrument used (#11 blade, #15 blade etc.)
2. What was excised (necrotic tissue, gangrenous tissue, slough etc.)
For excisional or non-excisional, please also include:
1. Depth of debridement (skin, subcutaneous tissue, fascia, muscle, bone etc)
2. Size and appearance of the wound (L, W, D, color of wound, drainage)
Use of terms such as suspected, likely, concern for, or probable (associated with a specific diagnosis that is being evaluated, monitored, or treated as if it exists) are acceptable and can be coded in the inpatient setting, when documented at the
time of discharge.
Thank you,
Sepideh Alston RN, BSN
CDI Specialist
Available via [facility] text
Please use your independent medical judgment in providing your response.
--- NOTE | 2024-05-10 11:33 | W.PN.HOSP.TC ---
Today's Communication/Plan
-
Continue current care
Assessment / Plan
Assessment / Plan
Gen-AAOx3, NAD
HEENT-NC, AT, anicteric, clear oral mm
Neck-supple
CV-reg, no M, +S1/S2
Lungs-clear B/L
Abd-soft, NT, ND
Ext-no edema
Musculoskeletal-no cyanosis, clubbing, right knee swollen, tender, warm, limited range of motion due to pain
Skin-warm and dry
Neuro-grossly non-focal
Psych-calm, cooperative
Sepsis due to acute septic arthritis right knee -n.p.o. currently awaiting washout today in the OR by orthopedics. Fluid culture positive for E. coli, antibiotics per infectious disease.
-WBCs 14.4, ESR 84
-CRP 206.30
-Knee x-ray with impression of Tricompartment osteoarthritis most as above the medial compartment and patellofemoral joint. Moderate effusion.
-Status post I&D 05/09.
-Blood cultures and fluid cultures sent
-Continue IV cefepime per ID
-Tylenol, Toradol and Dilaudid prn for pain
-F/u Ortho plan
Recent acute gastroenteritis -suspect transmucosal migration of bacteria from GI illness leading to bacteremia and septic arthritis given positive fluid culture for E. coli. Her GI illness started prior to onset of knee pain.
ARMIN -due to volume depletion. Improved.
Acute normocytic anemia -monitor hemoglobin. Etiology likely due to acute illness. No evidence of bleeding clinically.
Hyperglycemia -rule out DM2. Check hemoglobin A1c.
Morbid obesity due to excess calories
DVT prophylaxis -aspirin per orthopedics. Stop heparin.
Full code
Dispo -patient not interested in SNF on discharge. Will discuss with ID and orthopedics timing of discharge and antibiotic course.
Anticipated Discharge: Within 24 hours
Subjective/Interval History
-
Date of Service: May 10, 2024
Patient seen and examined. Complaining of some right knee pain but improved compared to yesterday.
Objective Data
-
Labs:
Laboratory Results
05/10/24
08:10
WBC 13.1 H
Hgb 10.1 L
Hct 30.3 L
Plt Count 385
Sodium 141
Potassium 4.9
Chloride 107
Carbon Dioxide 25
BUN 23 H
Creatinine 1.1 H
Glucose 127 H
Calcium 8.7
Vital Signs:
Vital Signs
Temp Pulse Resp BP Pulse Ox
97.9 F 64 18 101/54 96
05/10/24 07:00 05/10/24 07:00 05/10/24 07:00 05/10/24 07:00 05/10/24 07:00
I&O
05/09/24 05/10/24 05/11/24
06:59 06:59 06:59
Intake Total 2580 / 2580 1991.5
Output Total 0 / 0
Balance 2580 / 2580 1991.
Review of Systems
-
History Source: Patient
All other systems: Reviewed and negative
[2024-05-10 12:54] LABS: Glycohemoglobin (HgbA1c) 5.6 % (4.0-5.6)
--- NOTE | 2024-05-10 13:25 | W.PN.ID1 ---
Date of Service
Date of Service: May 10, 2024
Today's Communication
Narrow to ceftriaxone
Assessment / Plan
Right knee septic arthritis 2* E. coli
Leukocytosis
ARMIN
Elevated ESR
Elevated CRP
GERD
PE
Diverticulitis
Recommendations:
Joint aspirate cultures reviewed. E. coli growing, susceptible to cefazolin.
Transition antibiotics to ceftriaxone 2 g IV every 24 hours, to complete a 6-week course.
Place PICC.
Home infusion sheet will be placed on paper chart.
Follow-up in office in approximately 2 weeks.
����������������������������������������������������������
Chief Complaint
-: Other (Right knee septic arthritis)
Subjective / Review of Systems
Patient seen and examined. Underwent right knee washout yesterday. Currently feels well.
Review of Systems: No Fever and No Chills
Vital Signs / Physical Exam
Vital Signs
Vital Signs
Temp Pulse Resp BP Pulse Ox
98.0 F 70 18 137/76 96
05/10/24 11:00 05/10/24 11:00 05/10/24 11:00 05/10/24 11:00 05/10/24 11:00
Physical Exam
Constitutional: No Acute Distress, Comfortable and Non-toxic
Eyes: Sclera Anicteric
Cardiovascular: S1/S2; Negative S3/S4
Pulmonary: Non Labored
Gastrointestinal: Soft and Non Tender
Musculoskeletal: Joint Swelling (Right knee), Joint Effusion (Right knee) and Other (Dressing intact over right knee)
Skin: Warm and Dry
Neurological: Awake
Psychological: Calm
Objective Data
Lab Data
Lab Results
05/10/24 08:10
05/10/24 08:10
ESR 84 mm/hour (0-20) H 05/07/24 18:02
Estimated Creat Clear 64 ml/min 05/10/24 08:10
Lactic Acid 0.9 mmol/L (0.7-2.0) 05/07/24 18:25
Total Bilirubin 1.1 mg/dl (0.2-1.3) 05/07/24 17:58
AST 23 U/L (14-36) 05/07/24 17:58
ALT 24 U/L (0-35) 05/07/24 17:58
Alkaline Phosphatase 218 U/L (38-126) H 05/07/24 17:58
C-Reactive Protein 206.30 mg/L (0.0-10.00) H 05/07/24 18:02
Most recent labs reviewed.
Micro Results:
05/09/24 18:00 Anaerobic Culture - Preliminary
Knee - Right Culture pending. Anaerobic cultures are examined after 3
days incubation. Additional information to follow.
05/09/24 18:00 Wound Culture - Preliminary
Knee - Right Escherichia coli
Gram Stain - Preliminary
05/07/24 19:35 Body Fluid Culture - Final
Joint Fluid Escherichia coli
Gram Stain - Final
05/07/24 19:35 Blood Culture - Preliminary
Blood/Venous No Growth in 48 hours- Final report to follow
Fluid Cult/not urine Final 05/10/24-0834
Few Escherichia coli
Called to [id number] on 05/09/24 at 0858 by [facility]
Organism 1 Escherichia coli
1. Escherichia coli
M.I.C. RX
--------- ---
Amoxicillin/Potas. Clavulanate <=8/4 S
Ampicillin >16 R
Ampicillin/Sulbactam 16/8 I
Aztreonam <=4 S
Cefazolin <=2 S
Ertapenem <=0.5 S
Ciprofloxacin <=0.25 S
Gentamicin <=2 S
Meropenem <=1 S
Piperacillin/Tazobactam <=8 S
Tetracycline >8 R
Tobramycin <=2 S
Trimethoprim/Sulfamethoxazole <=2/38 S
Imaging:
05/07/2024 Right knee x-ray: There is obliteration of the medial compartment with dense degenerative subchondral sclerosis, subchondral cyst formation, and joint margin osteophyte formation. There is also moderate to advanced lateral compartment
narrowing with mild lateral joint margin osteophyte formation. There is advanced patellofemoral joint space narrowing with joint margin osteophyte formation. There is a moderate joint effusion. Film personally viewed.
Care Review
Plan reviewed with: Physician (Hospitalist; Orthopedics)
--- NOTE | 2024-05-10 14:14 | CM ---
Patient seen at bedside. Patient for discharge home with [facility] for IV antibiotics. CM reviewed options and PAC Data. [facility] patient admitting representative here and reviewed teaching. Prescription provided and medical information provided to
patient admitting representative from [facility]. All information provided. Patient for PICC placement today. CM will continue to follow for discharge planning needs.
Plan; home with [facility].
[2024-05-10] MEDS: MIRALAX 17 GRAMS PO (20:18)
[2024-05-10] MEDS: TORADOL 10 MG IV (23:08)
[2024-05-11] MEDS: STERILE WATER FOR INJECTION 10 ML IV ×2 (02:59→13:09)
[2024-05-11] MEDS: MAXIPIME 2000 MG IV ×2 (02:59→13:16)
[2024-05-11] MEDS: TYLENOL 650 MG PO ×3 (03:03→13:09)
[2024-05-11] MEDS: ROXICODONE 5 MG PO ×2 (03:09→07:18)
[2024-05-11] MEDS: TORADOL 10 MG IV (07:18)
--- NOTE | 2024-05-11 08:05 | W.PN.UPDATE ---
Update Note
Progress Note Update
Niurka is POD2 following her open right knee I&D performed by Dr. Vasquez. She reports her symptoms are gradually moving in the right direction. She endorses increased pain with ambulating.
Directed exam of the right knee reveals surgical dressings clean, dry and intact. Very mild tenderness to palpation generally about the joint. Mild discomfort elicited with ROM. Calf soft and nontender. Neurovascularly intact distally.
WBC stable at 13.1. Intra-operative culture growing E. coli.
63 yo F POD2 right knee open I&D under the direction of Dr. Vasquez
--WBAT RLE. Ambulate with assistive device as needed. We appreciate the assistance of PT/OT.
--Encouraged patient to perform ROM of knee as tolerated.
--Dressing to remain in place until postop appointment.
--Continue pain management as needed.
--Aspirin 325mg daily for DVT prophylaxis x4 weeks postop.
--Intraop cultures pending. Currently growing E. coli. Continue to monitor.
--Appreciate ID recommendations, currently on ceftriaxone.
--Case management consult for discharge planning.
--Will continue to follow
[2024-05-11] MEDS: SENOKOT 17.2 MG PO (08:19)
[2024-05-11] MEDS: ASPIRIN 325 MG PO (08:19)
[2024-05-11 08:27] VITALS: BP 142/68
[2024-05-11 09:05] VITALS: BP 130/74; PULSE 79; O2SAT 96
--- NOTE | 2024-05-11 10:08 | CM ---
Addendum entered by Elena Baumann 05/11/24 11:13:
Met with pt at bedside
Discussed PT recs - prefers [facility] for HH
Referral sent in [facility]
Plan home with [facility] for home infusion and [facility] for PT
[facility] - F - [phone]
[facility] f - [phone]
Original Note:
Chart reviewed
Pt for discharge today
Teaching completed by Mary at [facility] for home infusion needs
PICC/Chest X-ray reports sent to [facility] via Fax - [phone]
--- NOTE | 2024-05-11 10:49 | W.PN.HOSP.TC ---
Today's Communication/Plan
-
Discharge
Assessment / Plan
Assessment / Plan
Gen-AAOx3, NAD
HEENT-NC, AT, anicteric, clear oral mm
Neck-supple
CV-reg, no M, +S1/S2
Lungs-clear B/L
Abd-soft, NT, ND
Ext-no edema
Musculoskeletal-no cyanosis, clubbing, right knee swollen, tender, warm, limited range of motion due to pain
Skin-warm and dry
Neuro-grossly non-focal
Psych-calm, cooperative
Sepsis due to acute septic arthritis right knee -n.p.o. currently awaiting washout today in the OR by orthopedics. Fluid culture positive for E. coli, antibiotics per infectious disease.
-WBCs 14.4, ESR 84
-CRP 206.30
-Knee x-ray with impression of Tricompartment osteoarthritis most as above the medial compartment and patellofemoral joint. Moderate effusion.
-Status post I&D 05/09.
-Blood cultures and fluid cultures sent
-Ceftriaxone IV on discharge as per infectious disease for 6 weeks.
-Tylenol, Toradol and Dilaudid prn for pain
-F/u Ortho plan
Recent acute gastroenteritis -suspect transmucosal migration of bacteria from GI illness leading to bacteremia and septic arthritis given positive fluid culture for E. coli. Her GI illness started prior to onset of knee pain.
ARMIN -due to volume depletion. Improved.
Acute normocytic anemia -monitor hemoglobin. Etiology likely due to acute illness. No evidence of bleeding clinically.
Hyperglycemia -rule out DM2. Check hemoglobin A1c.
Morbid obesity due to excess calories
DVT prophylaxis -aspirin per orthopedics. Stop heparin.
Full code
Dispo -medically stable for discharge home today with [facility]. Outpatient follow-up.
35-minute spent in discharge process.
Anticipated Discharge: Today
Subjective/Interval History
-
Date of Service: May 11, 2024
Patient seen and examined. No complaints.
Objective Data
-
Vital Signs:
Vital Signs
Temp Pulse Resp BP Pulse Ox
97.9 F 82 20 142/68 94
05/11/24 08:27 05/11/24 08:27 05/11/24 08:27 05/11/24 08:27 05/11/24 08:27
I&O
05/10/24 05/11/24 05/12/24
06:59 06:59 06:59
Intake Total 900 / 900
Output Total 0 / 0
Balance 900 / 900
Review of Systems
-
History Source: Patient
All other systems: Reviewed and negative
--- NOTE | 2024-05-11 10:51 | W.DS.TRANS ---
DC Summary - Sales Advisor
-
Discharge Instructions:
Discharge Diagnosis/Procedures Right knee septic arthritis, acute kidney injury
Diet Regular
Activity With assistance,As tolerated
Driving Restrictions No driving
Bathing Restrictions None
Instructions:
Stand-Alone Forms:
Changes to Home Medications: No
Discharge Medications:
DC Medications w/original date entered in [facility]
acetaminophen 500 mg tablet 1,000 mg PO BID 03/21/22
aspirin 325 mg tablet 325 mg PO DAILY #28 tabs 05/10/24
ceftriaxone 2 gram solution for injection 2 g IV DAILY #25 ea 05/10/24
oxycodone 5 mg tablet 5 mg PO Q4HPRN PRN mild pain #15 tabs 05/10/24
Home Medication Changes
Pending Results: No
--- NOTE | 2024-05-11 11:18 | W.PN.ID1 ---
Date of Service
Date of Service: May 11, 2024
Today's Communication
Continue antibiotics.
Assessment / Plan
Right knee septic arthritis 2* E. coli
Leukocytosis
ARMIN
Elevated ESR
Elevated CRP
GERD
PE
Diverticulitis
Recommendations:
Both joint aspirate and washout growing E. coli susceptible to cefazolin.
Continue with ceftriaxone 2 g IV every 24 hours, to complete a 6-week course.
PICC placed
Follow-up in office in approximately 2 weeks.
����������������������������������������������������������
Chief Complaint
-: Other (Right knee septic arthritis)
Subjective / Review of Systems
Patient seen and examined. Reports the knee is without significant discomfort.
Vital Signs / Physical Exam
Vital Signs
Vital Signs
Temp Pulse Resp BP Pulse Ox
97.9 F 82 20 142/68 94
05/11/24 08:27 05/11/24 08:27 05/11/24 08:27 05/11/24 08:27 05/11/24 08:27
Physical Exam
Constitutional: No Acute Distress, Comfortable and Non-toxic
Eyes: Sclera Anicteric
Pulmonary: Non Labored
Gastrointestinal: Non Distended
Musculoskeletal: Joint Swelling (Right knee), Joint Effusion (Right knee) and Other (Dressing intact over right knee)
Skin: Warm and Dry
Neurological: Awake
Psychological: Calm
Lines: PICC (Right upper extremity)
Objective Data
Lab Data
Lab Results
05/10/24 08:10
05/10/24 08:10
ESR 84 mm/hour (0-20) H 05/07/24 18:02
Estimated Creat Clear 64 ml/min 05/10/24 08:10
Lactic Acid 0.9 mmol/L (0.7-2.0) 05/07/24 18:25
Total Bilirubin 1.1 mg/dl (0.2-1.3) 05/07/24 17:58
AST 23 U/L (14-36) 05/07/24 17:58
ALT 24 U/L (0-35) 05/07/24 17:58
Alkaline Phosphatase 218 U/L (38-126) H 05/07/24 17:58
C-Reactive Protein 206.30 mg/L (0.0-10.00) H 05/07/24 18:02
Most recent labs reviewed.
Micro Results:
05/07/24 19:35 Blood Culture - Preliminary
Blood/Venous No Growth in 72 hours- Final report to follow
05/09/24 18:00 Anaerobic Culture - Preliminary
Knee - Right Culture pending. Anaerobic cultures are examined after 3
days incubation. Additional information to follow.
05/09/24 18:00 Wound Culture - Preliminary
Knee - Right Escherichia coli
Gram Stain - Preliminary
05/07/24 19:35 Body Fluid Culture - Final
Joint Fluid Escherichia coli
Gram Stain - Final
Fluid Cult/not urine Final 05/10/24-0834
Few Escherichia coli
Called to [id number] on 05/09/24 at 0858 by [facility]
Organism 1 Escherichia coli
1. Escherichia coli
M.I.C. RX
--------- ---
Amoxicillin/Potas. Clavulanate <=8/4 S
Ampicillin >16 R
Ampicillin/Sulbactam 16/8 I
Aztreonam <=4 S
Cefazolin <=2 S
Ertapenem <=0.5 S
Ciprofloxacin <=0.25 S
Gentamicin <=2 S
Meropenem <=1 S
Piperacillin/Tazobactam <=8 S
Tetracycline >8 R
Tobramycin <=2 S
Trimethoprim/Sulfamethoxazole <=2/38 S
Imaging:
05/07/2024 Right knee x-ray: There is obliteration of the medial compartment with dense degenerative subchondral sclerosis, subchondral cyst formation, and joint margin osteophyte formation. There is also moderate to advanced lateral compartment
narrowing with mild lateral joint margin osteophyte formation. There is advanced patellofemoral joint space narrowing with joint margin osteophyte formation. There is a moderate joint effusion. Film personally viewed.
[2024-05-11 13:28] VITALS: BP 137/76
--- NOTE | 2024-05-16 15:41 | PN.CDI ---
CDI
- -
CDI:
Physician Documentation Request
Admit Date: 05/07/24 21:28
Dear Doctor Christina,
Patient admitted for right knee infection.
129 Operative Report: 'Open debridement and irrigation of the right knee...The skin was dissected down to the base of the prepatellar bursa. This was dissected medially in a full thickness flap to the medial parapatellar retinaculum. The retinaculum
was incised with care to protect the patellar tendon. The fluid showed signs of purulence and turbidity. There was advanced osteoarthritis. The joint was copiously irrigated with 9 L of sterile saline via cystotubing.'
Could you provide, in the progress notes further clarification regarding the debridement.
Please specify the type of debridement performed:
1. Excisional Debridement - defined as removal by excision of devitalized tissue, necrosis or slough
2. Non-excisional debridement - defined as removal of devitalized tissue, necrosis or slough by such methods as irrigation, brushing, scrubbing or washing.
If the debridement was excisional, please also include:
1. Type of instrument used (#11 blade, #15 blade etc.)
2. What was excised (necrotic tissue, gangrenous tissue, slough etc.)
For excisional or non-excisional, please also include:
1. Depth of debridement (skin, subcutaneous tissue, fascia, muscle, bone etc)
2. Size and appearance of the wound (L, W, D, color of wound, drainage)
Use of terms such as suspected, likely, concern for, or probable (associated with a specific diagnosis that is being evaluated, monitored, or treated as if it exists) are acceptable and can be coded in the inpatient setting, when documented at the
time of discharge.
Thank you,
Sepideh Alston RN, BSN
CDI Specialist
Available via [facility] text
Please use your independent medical judgment in providing your response.
== END 2024-05-11 13:45 | disposition home health service (06) | DRG 854 ==
LOC: 2 SOUTH 21:28
PROVIDERS: Nurse Practitioner; Registered Nurse; ADMITTING PHYSICIAN Internal Medicine; ATTENDING PHYSICIAN Hospitalist; CONSULT PHYSICIAN Internal Medicine Infectious Disease; CONSULT PHYSICIAN Orthopaedic Surgery; EMERGENCY PHYSICIAN Emergency Medicine; FAMILY PHYSICIAN Internal Medicine
PROC: 0SBC0ZZ Excision of Right Knee Joint, Open Approach (ICD-10-PCS; 2024-05-09)
DX: A41.9 Sepsis, unspecified organism (principal); M00.861 Arthritis due to other bacteria, right knee; N17.9 Acute kidney failure, unspecified; Z68.41 Body mass index [BMI] 40.0-44.9, adult; B96.20 Unspecified Escherichia coli [E. coli] as the cause of diseases classified elsewhere; K21.9 Gastro-esophageal reflux disease without esophagitis; Z87.891 Personal history of nicotine dependence; Z90.49 Acquired absence of other specified parts of digestive tract; Z86.711 Personal history of pulmonary embolism; E66.01 Morbid (severe) obesity due to excess calories; E86.0 Dehydration; D64.9 Anemia, unspecified; R73.9 Hyperglycemia, unspecified
CPT/HCPCS: 20610; 71045; 73564; 80048; 80053; 80202; 83036; 83605; 85025; 85027; 85652; 86140; 86618; 86803; 87015; 87040; 87070; 87075; 87077; 87186; 87205; 89051; 89060; 96365; 96366; 96375; 97116; 97162; 97166; 97530; 99285; C1729